=== PATIENT | female | born 1975 | race Two or more races ===

== ENCOUNTER 2019-10-27 21:04 | Emergency (ER) | payer OTHER ==
[~2019-10-27] VITALS: Ht 167.6 cm; Wt 95.3 kg
[2019-10-28] MEDS ORDERED: NORFLEX100MG PO (00:26)
[2019-10-28] MEDS ORDERED: DICLOFENAC SODI75 MG PO (00:26)
== END 2019-10-28 00:40 | disposition home or self-care (01) ==
LOC: ER 21:04
DX: S13.4XXA Sprain of ligaments of cervical spine, initial encounter (principal); V43.52XA Car driver injured in collision with other type car in traffic accident, initial encounter; Y93.89 Activity, other specified; Y92.488 Other paved roadways as the place of occurrence of the external cause; Y99.8 Other external cause status